=== PATIENT | male | born 1985 | race Hispanic/Latino ===

== ENCOUNTER 2017-10-11 23:47 | Emergency (ER) | payer OTHER ==
[~2017-10-11] VITALS: Ht 175.3 cm; Wt 72.6 kg
[~2017-10-11 23:47] MED LIST: CLEOCIN HCL300 M1 PO; MOBIC15 M1 PO
[2017-10-11 23:53] VITALS: BP 134/73
--- NOTE | 2017-10-12 00:02 | ED GI/GU/ABDOMINAL COMPLAINT ---
History of Present Illness General Chief Complaint: General Adult Stated Complaint: "STINGING WHEN I URINATE" PER PT Source: patient Exam Limitations: no limitations Vital Signs & Intake/Output Vital Signs & Intake/Output Vital Signs Date Time Temp Pulse Resp B/P B/P Pulse O2 O2 Flow FiO2 Mean Ox Delivery Rate 10/11 2353 97.9 88 18 134/73 98 Room Air ED Intake and Output 10/12 0000 10/11 1200 Intake Total Output Total Balance Patient 72.575 kg Weight Weight Reported by Patient Measurement Method Allergies Coded Allergies: methylphenidate (From RITALIN) (Intermediate, HIVES 03/25/17) Reconcile Medications Clindamycin HCl (Cleocin HCl) 300 MG CAPSULE 1 CAP PO TID dental infection Fluticasone Propionate 50 MCG/ACTUATION SPRAY.SUSP 2 SPRAY NASB DAILY ALLERGIES (Reported) Meloxicam (Mobic) 15 MG TABLET 1 TAB PO DAILY PRN pain Triage Note: PT TO ED C/O PAIN WITH URINATION FOR 2 WEEKS, GETTING WORSE. URINE CLOUDY. DENIES PENILE DISCHARGE Triage Nurses Notes Reviewed? yes HPI: 32M PMH ADHD with 10 days of burning urination without penile discharge. No pelvic or suprapubic pain. Presentation similar to prior episode of STI. Denies fever, chills, nausea, vomiting, abdominal pain, chest pain, SOB, constipation. Sexually active with 3 partners, all women, uses condoms with 2 of them, but not with his current partner, who is also in the ED with similar complaints. No other symptoms. Past History Travel History Traveled to [place] past 21 day No Medical History Any Pertinent Medical History? see below for history Neurological: NONE EENT: NONE Cardiovascular: NONE Respiratory: NONE Gastrointestinal: NONE Hepatic: NONE Renal: KIDNEY STONES Musculoskeletal: NONE Psychiatric: ADHD Endocrine: NONE Blood Disorders: NONE Cancer(s): NONE GREASER AND OILER/Reproductive: HPV Surgical History Surgical History: non-contributory Psychosocial History What is your primary language Senegalese Tobacco Use: Quit >30 days ago ETOH Use: occasional use Illicit Drug Use: marijuana Family History Hx Contributory? No Review of Systems Review of Systems Constitutional: Reports: no symptoms. EENTM: Reports: no symptoms. Respiratory: Reports: no symptoms. Cardiovascular: Reports: no symptoms. GI: Reports: no symptoms. Genitourinary: Reports: no symptoms. Musculoskeletal: Reports: no symptoms. Skin: Reports: no symptoms. Neurological/Psychological: Reports: no symptoms. Hematologic/Endocrine: Reports: no symptoms. Immunologic/Allergic: Reports: no symptoms. All Other Systems: Reviewed and Negative Physical Exam Physical Exam General Appearance: well developed/nourished, no apparent distress Head: atraumatic, normal appearance Eyes: Bilateral: normal appearance. Ears, Nose, Throat, Mouth: hearing grossly normal, moist mucous membrane Neck: normal inspection, supple, full range of motion Respiratory: normal breath sounds, no respiratory distress Cardiovascular: regular rate/rhythm Gastrointestinal: soft, non-tender Rectal: deferred Male Genitals: normal Back: normal inspection, normal range of motion Extremities: normal range of motion Neurologic/Psych: awake, alert, oriented x 3, normal mood/affect Skin: intact, normal color, warm/dry Core Measures ACS in differential dx? No Sepsis Present: No Sepsis Focused Exam Completed? No Progress Differential Diagnosis: appendicitis, epididymitis, hernia, orchitis, prostatitis, pyelonephritis, testicular torsion, urethritis, UTI/pyelo Plan of Care: Orders Procedure Date/time Status Add-on Test (ER Only) 10/12 Active HIV (Reflex to HIVCQ) 10/12 Active URINALYSIS 10/11 2354 Active GC DNA PROBE 10/11 2353 Active CHLAMYDIA-GC DNA PROBE 10/11 2353 Active Laboratory Tests 10/11/17 235: Urine Color Pending, Urine Clarity Pending, Urine pH Pending, Ur Specific [place] Pending, Urine Protein Pending, Urine Ketones Pending, Urine Nitrite Pending, Urine Bilirubin Pending, Urine Urobilinogen Pending, Ur Leukocyte Esterase Pending, Ur Microscopic Pending, Urine Hemoglobin Pending, Urine Glucose Pending Microbiology 10/11 2353 URINE ROUT: GC DNA Probe - RECD 10/11 2353 URINE ROUT: Chlamydia DNA Probe ([facility]) - RECD Initial ED EKG: none Departure Departure Disposition: HOME OR SELF CARE Condition: Stable Clinical Impression Primary Impression: Urethritis Referrals: Patient Has No Primary Care Dr (PCP/Family) Additional Instructions: Follow up with your PCP. Drink plenty of water. Use condoms with sexual activity. Call the [facility] lab tomorrow for your results. Return to ED if new or worsening symptoms. Departure Forms: Customer Survey General Discharge Information
[2017-10-12] MEDS ORDERED: FLUTICASONE PRO16 GM NASB (00:13)
== END 2017-10-12 00:35 ==
LOC: ERH 23:47
DX: N34.2 Other urethritis (principal)
CPT/HCPCS: 81001; 87389; 87491; 87591; 96372; J0696